=== PATIENT | male | born 1955 | race Hispanic/Latino ===

== ENCOUNTER 2021-01-05 21:21 | Inpatient (IN) | payer OTHER ==
[2021-01-05 22:31] VITALS: BMI 28.6
[2021-01-06 01:07] LABS: SARS-CoV-2 NAA Rapid Test Not Detected (NotDetected)
[2021-01-06] MEDS ORDERED: Insulin Regular 300 UNITS/3 ML VIAL SC PRN (04:30)
[2021-01-06] MEDS ORDERED: Ondansetron PF 4 MG/2 ML Vial IVP PRN (04:30)
[2021-01-06] MEDS ORDERED: HumaLOG 300 UNITS/3 ML VIAL SC PRN (04:30)
[2021-01-06] MEDS ORDERED: Dextrose 50% Abboject 50 ML SYRINGE SLOW IVP PRN (04:30)
[2021-01-06] MEDS ORDERED: Dextrose 5% in Water 1,000 ML IV PRN (04:30)
[2021-01-06] MEDS ORDERED: Ondansetron ODT 4 MG TAB PO PRN (04:30)
[2021-01-06] MEDS ORDERED: Enoxaparin Sodium 40 MG/0.4 ML SYRINGE SC SCH (09:00)
[2021-01-06] MEDS ORDERED: TICAGRELOR 90 MG TABLET PO SCH (09:00)
[2021-01-06] MEDS ORDERED: Aspirin 81 mg Enteric Coated Tablet PO SCH (09:00)
[2021-01-06 09:57] LABS: Hemoglobin A1c 7.2 % (4.0-6.0)
[2021-01-06 10:13] LABS: Cardiac Risk 3.6 (Less than 4.5)
[2021-01-06 15:46] VITALS: BP 135/73; TEMP 97.9
[2021-01-07] MEDS ORDERED: Clopidogrel Bisulfate 75 MG TAB PO SCH (09:00)
== END 2021-01-06 20:11 | disposition home or self-care (01) | DRG 68 ==
LOC: 2SE 22:19 → OBSVTOIN 01-06 04:42
PROVIDERS: ADMIT Student in an Organized Health Care Education/Training Program; ATTEND Internal Medicine
DX: I66.21 Occlusion and stenosis of right posterior cerebral artery (principal); Z20.822 Contact with and (suspected) exposure to COVID-19; K21.9 Gastro-esophageal reflux disease without esophagitis; E78.5 Hyperlipidemia, unspecified; I10 Essential (primary) hypertension; E11.9 Type 2 diabetes mellitus without complications; R20.0 Anesthesia of skin; Z79.84 Long term (current) use of oral hypoglycemic drugs; Z79.82 Long term (current) use of aspirin; Z79.899 Other long term (current) drug therapy
CPT/HCPCS: 36415; 36416; 70551; 80061; 83036; 84443; 93306; J1650; J1815; U0002; U0005